=== PATIENT | male | born 1945 | race Caucasian/White ===

== ENCOUNTER 2019-10-27 08:21 | Observation (INO) ==
--- NOTE | 2019-10-09 14:15 | PAT Medication Instructions ---
Medication Instructions Date of Service October 09, 2019 Home Medications aspirin 81 mg tablet,delayed release 81 mg PO QAM atorvastatin 40 mg tablet 40 mg PO QAM carvedilol 3.125 mg tablet 3.125 mg PO QAM clopidogrel 75 mg tablet 75 mg PO QAM lisinopril 2.5 mg tablet 2.5 mg PO QAM ranolazine [Ranexa] 500 mg PO BID ASK your prescriber and surgeon clopidogrel 75 mg tablet 75 mg PO QAM DO NOT take the morning of surgery lisinopril 2.5 mg tablet 2.5 mg PO QAM Take morning of surgery With a small sip of water, OTHERWISE NOTHING TO EAT OR DRINK AFTER MIDNIGHT: aspirin 81 mg tablet,delayed release 81 mg PO QAM atorvastatin 40 mg tablet 40 mg PO QAM carvedilol 3.125 mg tablet 3.125 mg PO QAM ranolazine [Ranexa] 500 mg PO BID Take evening before surgery ranolazine [Ranexa] 500 mg PO BID Other Notes If you have any questions please call us at [phone] or [phone] or [phone] or [phone]
--- NOTE | 2019-10-09 14:26 | Anesthesiology Consultation ---
Date of Service October 09, 2019 Assessment & Plan (1) Encounter for pre-operative examination: S/P Cardiac cath 10/12/19 that showed patent stents, 20% RCA, otherwise mild luminal irregularities. CARDIO CLEARANCE 10/12/19: "Patient may proceed with planned knee surgery without additional cardiac testing. We will increase Ranexa dosage to 1000 mg twice daily." Chart Review Chart Review: Acceptable Risk for Surgery and Patient seen in Pre Admission Testing Teaching & Discussion Instructed NPO after midnight before surgery, except medications with 15 cc of water. Medication instructions provided according to the PAT guidelines. History Surgery Operation Date: 10/27/19 10:40 Proposed Procedures p Left Total Knee Arthroplasty - Kwesi Aragon MD Height/Weight Height: 6 ft 2 in Weight: 103.9 kg Allergies Allergy/AdvReac Type Severity Reaction Status Date / Time No Known Allergies Allergy Verified 10/09/19 13:49 Medications Home Medications Medication Instructions Recorded Confirmed Last Taken aspirin 81 mg tablet,delayed 81 mg PO QAM 10/09/19 10/09/19 Unknown release atorvastatin 40 mg tablet 40 mg PO QAM 10/09/19 10/09/19 Unknown carvedilol 3.125 mg tablet 3.125 mg PO QAM tab 10/09/19 10/09/19 Unknown clopidogrel 75 mg tablet 75 mg PO QAM 10/09/19 10/09/19 Unknown lisinopril 2.5 mg tablet 2.5 mg PO QAM 10/09/19 10/09/19 Unknown ranolazine [Ranexa] 500 mg PO BID 10/09/19 10/09/19 Unknown Past Medical History Medical History (Updated 10/15/19 @ 12:35 by José Miguel Kimball) CAD (coronary artery disease) [place] 2011. SUKI x 2. Cath 2015 with SUKI x 3 Hyperlipidemia Hypertension Myocardial Infarction 2011 > stents Osteoarthritis Exercise / Class Metabolic Activity II 4-5 Yardwork/Stairs/Walk up hill (Does 2 FOS daily at home, admits to some mild SOB and chest discomfort with FOS) Past Family History Family History Other Coronary heart disease Past Surgical History Surgical History H/O heart artery stent 10/2011 > 2 stents [facility] 2015 > 3 stents [facility] History of cardiac cath see stent info> getting cath on thursday 10/12/@ mery Gardner > reason due to upcoming procedure History of colonoscopy History of prior ablation treatment AUG 2018 FOR VEINS LEFT LEG History of tonsillectomy History of tooth extraction Hx of hernia repair Past Anesthesia History No Hx of Anesthesia Complications and No Family Hx of Anesthesia Complications History of PONV No Hx of PONV and Hx of Motion Sickness Social History Smoking Status: Former smoker Do You Dip or Chew Tobacco: No Smoking End Date: Hx Alcohol Use: Yes Alcohol type: wine alcohol intake frequency: a few times a week Hx Substance Use: No substance use type: does not use Review of Systems Pt denies any recent chest pain, shortness of breath, palpitations, cough, fever or URI. Physical Exam Vital Signs BP: 110/69 P: 65bpm SPO2: 94% RA T: 97.8 F R: 16 ENMT Mouth: + dentition abnormality (missing 1 lower molar, few upper) and + dentures (partial upper ); no chipped teeth and no loose teeth Thyromental Distance: > or= 3.5 Finger Breadths (3.5) Mallampati Class: I Neck normal visual inspection and + limited neck extension (mildly) Respiratory normal respiratory effort Auscultation: lungs clear to auscultation bilaterally Cardiovascular Rate/Rhythm: regular rate and regular rhythm Heart Sounds: no murmur Vessels: no carotid bruit Extremities: no edema Testing Laboratory Results 10/09/19 14:32 10/09/19 14:32 PT 10.4 Seconds (9.0-12.0) 10/09/19 14:32 INR 1.0 (0.9-1.1) 10/09/19 14:32 APTT 24.5 Seconds (21.0-31.0) 10/09/19 14:32 Blood Type A Positive 10/09/19 14:32 Antibody Screen NEGATIVE 10/09/19 14:32 Electrocardiogram Date: 10/08/19 Findings: + SB @ (55) Chest X-Ray Date: 10/09/19 FINDINGS: Cardiac silhouette is upper limits of normal in size. Coronary arterial stent graft noted. There is no pneumothorax, pleural effusion, focal airspace consolidation or overt pulmonary edema. Degenerative changes of the shoulders and spine. 11 mm ovoid nodular density 6 over the abdominal right upper quadrant, possibly a calcification. IMPRESSION: No acute process. Stress Test Date: 09/30/19 Type: nuclear Resting EF: 66% Myocardial perfusion imaging is normal with no ischemia or infarction. Wall motion is normal. Cardiac Catheterization Date: 10/12/19 Patent LAD, diagonal, circumflex and RCA stents. 20% proximal RCA. Otherwise mild luminal irregularities.
--- NOTE | 2019-10-09 14:52 | XRay Report ---
XR chest Pre-admission PA/Lat HISTORY: 74 years-old Male pat preoperative exam. No acute chest complaints COMPARISON: None TECHNIQUE: PA and lateral views of the chest FINDINGS: Cardiac silhouette is upper limits of normal in size. Coronary arterial stent graft noted. There is n o pneumothorax, pleural effusion, focal airspace consolidation or overt pulmonary edema. Degenerative changes of the shoulders and spine. 11 mm ovoid nodular density 6 over the abdominal right upper jovanna drant, possibly a calcification. IMPRESSION: No acute process. ACT 112: Negative or not required by law. The above report was generated using voice recognition software. It may contain grammatical, syntax o r spelling errors. Electronically signed by: Eric Strickland M.D. 10/09/2019 2:51 PM
[2019-10-09 15:13] LABS: Basophils # (auto) 0.07 K/uL (0-0.2); Eosinophils # (auto) 0.28 K/uL (0-0.5); Eosinophils % (auto) 4.1 %; Hematocrit (blood only) 42.4 % (42-52); Hemoglobin 14.4 g/dL (14.0-18.0); Immature Granulocytes # (auto) 0.01 K/uL (0.00-0.02); Immature Granulocytes % (auto) 0.1 %; Lymphocytes % (auto) 26.1 %; Mean Corpuscular Hemoglobin 30.8 pg (25-34); Mean Corpuscular Volume 90.6 fL (80-100); Mean Platelet Volume 9.5 fL (7.4-10.4); Monocytes # (auto) 0.68 K/uL (0.11-0.59); Monocytes % (auto) 9.9 %; Neutrophils # (auto) 4.05 K/uL (1.4-6.5); Neutrophils % (auto) 58.8 %; Platelet Count 275 K/uL (130-400); RDW Coefficient of Variation 13.1 % (11.5-14.5); RDW Standard Deviation 43.4 fL (36.4-46.3); Red Blood Count 4.68 M/uL (4.7-6.1); White Blood Count 6.89 K/uL (4.8-10.8)
[2019-10-09 15:24] LABS: Partial Thromboplastin Ratio 0.9; Partial Thromboplastin Time 24.5 Seconds (21.0-31.0); Prothrombin Time 10.4 Seconds (9.0-12.0)
[2019-10-09 15:26] LABS: Calcium 9.5 mg/dl (8.5-10.1); Creatinine Clr Calc Pharmacy 77.6 ml/min; Est GFR (African American) 77.6; Potassium 4.6 mmol/L (3.5-5.1)
[~2019-10-27 08:21] MED LIST: ACETAMINOPHEN 500 MG TAB PO SCH; BUPIVACAINE 0.5 % 5 MG/1 ML PF 10ML VIAL ONE; BUPIVACAINE LIPOSOME/PF 266 MG, BUPIVACAINE/EPINEPHRINE 50 ML, SODIUM CHLORIDE 0.9% 30 ... INFIL SCH; BUPIVACAINE/EPINEPHRINE 0.25% 1:200,000 30 ML VIAL ONE; CEFAZOLIN 2000MG 2,000 MG/15 ML SYR IV SCH; DEXAMETHASONE SOD INJ 4 MG/ML VIAL ONE; FAMOTIDINE 20 MG TAB PO SCH; GABAPENTIN 300 MG CAP PO SCH; LR 500ML BOLUS, THEN 15ML/HR IV SCH; LR 60ML/HR IV SCH; METOCLOPRAMIDE HCL 10 MG TABLET PO SCH; TRANEXAMIC ACID 1,000 MG **IV Intra-op IV SCH
--- NOTE | 2019-10-27 08:56 | History & Physical Bridge Note ---
Date of Service October 27, 2019 History & Physical Bridge Note I have examined the patient, reviewed the History & Physical and in the interval since the performance of the History & Physical I have noted the following changes of clinical significance: no changes noted
[2019-10-27] MEDS ORDERED: fentaNYL citrate 100 MCG/2 ML VIAL ONE (09:34)
[2019-10-27] MEDS ORDERED: MIDAZOLAM HCL 1 MG/ML 2ML VIAL ONE (09:34)
[2019-10-27] MEDS ORDERED: ATROPINE SULFATE 0.1 MG/ML 10ML SYR IV PRN (10:55)
[2019-10-27] MEDS ORDERED: ONDANSETRON INJ 2 MG/ML 2 ML VIAL IV PRN ×2 (10:55→14:49)
[2019-10-27] MEDS ORDERED: fentaNYL citrate 100 MCG/2 ML VIAL IV PRN (10:55)
[2019-10-27] MEDS ORDERED: ePHEDrine sulfate 50 MG/ML AMP IV PRN (10:55)
[2019-10-27] MEDS ORDERED: BUPIVACAINE/EPINEPHRINE 0.25% 1:200,000 30 ML VIAL ONE (11:06)
[2019-10-27] MEDS ORDERED: SODIUM CHLORIDE 0.9% PF 50 ML VIAL ONE (11:06)
[2019-10-27] MEDS ORDERED: BUPIVACAINE LIPOSOME 1.3% 266 MG/20 ML VIAL ONE (11:07)
[2019-10-27] MEDS ORDERED: BACITRACIN INJ 50,000 UNIT VIAL ONE (11:07)
[2019-10-27] MEDS ORDERED: PROPOFOL IV EMULSION 10 MG/ML 20 ML VIAL IV ONE (11:35)
[2019-10-27] MEDS ORDERED: ePHEDrine sulfate 50 MG/ML SYR ONE (12:18)
--- NOTE | 2019-10-27 13:15 | Post Operative Brief Note ---
PG Immediate Post Op with CF Date of Surgery October 27, 2019 Pre & Post Diagnosis Operation Date: 10/27/19 10:40 Pre-Op Diagnosis: Left Knee Degenerative Joint Disease Post-Op Diagnosis: Left Knee Degenerative Joint Disease I identified the patient and participated in the time-out.: Yes Procedure Operation Date: 10/27/19 10:40 Actual Procedures p Left Total Knee Arthroplasty(Left) - Kwesi Aragon MD Surgeon Kwesi Aragon MD Risk Control Product Liability Director Amelia, PAC Estimated Blood Loss 50 Findings Consistent with Post-Op Diagnosis Fluids 1200 cc Specimens Specimen Description: A. Left Knee Bone and Tissue Drains Sauceda Catheter Anesthesia Type Spinal MAC Complications none Disposition Accompanied Patient To Recovery: No Disposition: Recovery Room
--- NOTE | 2019-10-27 13:53 | XRay Report ---
XR knee LT 1 or 2V routine CLINICAL HISTORY: Surgical Post Op COMPARISON: Knee radiographs October 09, 2019. FINDINGS: Alignment of the total left knee arthroplasty is anatomic. There is no periprosthetic frac ture or unexpected radiopaque foreign body. There are skin lety. IMPRESSION: Expected findings following total left knee arthroplasty. ACT 112: Negative or not required by law. Electronically signed by: Vinod Wells M.D. 10/27/2019 1:52 PM
--- NOTE | 2019-10-27 14:21 | Anesthesiology Progress Note ---
Date of Service October 27, 2019 Anesthesia Post Procedure Vital Signs Vital Signs: Temp Pulse Pulse Resp BP BP Pulse Ox 10/27/19 14:10 61 17 116/69 94 10/27/19 14:00 36.4 C L 57 L 14 119/72 96 10/27/19 13:50 58 L 15 120/74 98 10/27/19 13:40 60 13 111/64 95 10/27/19 13:30 63 12 101/58 L 97 10/27/19 13:21 36.4 C L 61 20 104/63 99 10/27/19 08:53 36.5 C 62 18 145/95 H 97 Transfer of Care Handoff Completed per policy Notes Mental Status: alert / awake / arousable Patient Amnestic to Procedure: Yes Nausea / Vomiting: adequately controlled Pain: adequately controlled Airway Patency, RR, SpO2: stable & adequate BP & HR: stable & adequate Hydration State: stable & adequate Neuraxial Anesthesia: was administered and sensory block is resolving Anesthetic Complications: no major complications apparent and Pt Satisfied with anesthetic care
[2019-10-27] MEDS ORDERED: METOCLOPRAMIDE HCL INJ 5 MG/ML 2 ML VIAL IV PRN (14:49)
[2019-10-27] MEDS ORDERED: NALOXONE HCL 0.4 MG/1 ML VIAL/CARP IV PRN (14:49)
[2019-10-27] MEDS ORDERED: bisacodyL 10 MG SUPP PR PRN (14:49)
[2019-10-27] MEDS ORDERED: MAGNESIUM HYDROXIDE SUSP 30 ML UDC PO PRN (14:49)
[2019-10-27] MEDS ORDERED: HYDROmorphone INJ 0.5 MG/0.5 ML SYR IV PRN (14:49)
[2019-10-27] MEDS ORDERED: ALUMINUM/MAGNESIUM SUSP 30 ML UDC PO PRN (14:49)
[2019-10-27] MEDS ORDERED: TAMSULOSIN HCL 0.4 MG CAP PO PRN (14:49)
[2019-10-27] MEDS: SODIUM CHLORIDE 0.9% 1000ML 1,000 ML IV SCH (16:16)
[2019-10-27] MEDS: ACETAMINOPHEN 500 MG TAB PO SCH ×2 (16:16→21:28)
--- NOTE | 2019-10-27 16:59 | Operative Report ---
Post Operative Report Pre & Post Diagnosis Operation Date: 10/27/19 10:40 Pre-Op Diagnosis: Left Knee Degenerative Joint Disease Post-Op Diagnosis: Left Knee Degenerative Joint Disease I identified the patient and participated in the time-out.: Yes Procedure Operation Date: 10/27/19 10:40 Actual Procedures p Left Total Knee Arthroplasty(Left) - Kwesi Aragon MD Surgeon Kwesi Aragon MD In Store Banker Amelia, PAC Estimated Blood Loss 50 Findings Consistent with Post-Op Diagnosis Operative findings revealed advanced left knee DJD with extensive grade 4 [id number] disease of the medial femoral condyle medial tibial plateau with eburnation of both surfaces. He had some mild patellofemoral disease and pretty well spared lateral compartment. He had osteophytes medially. Moderate-sized joint effusion. He had fixed varus deformity to his knee. Fluids 1200 cc. Specimens Left knee sent for pathology. Drains None. Anesthesia Type Spinal MAC Complications none Disposition Accompanied Patient To Recovery: No Disposition: Recovery Room Indications Patient is a 74-year-old fairly active gentleman is had a fairly long history of bilateral knee pain discomfort left side bit worse than the right. He has been through extensive conservative treatment without adequate relief. Left knee was bothering more than the right. X-rays show advanced bilateral knee DJD. He elected proceed with left total knee arthroplasty. Description of Procedure Operative implants consist of: 1. Biomet Vanguard size 75 left posterior by femoral component. 2. Biomet size 79 tibial tray. 3. 10 mm Po stabilized polyethylene insert. 4. 34 x 8 and half all poly-patella. Patient was taken to the operating room identified and placed on the operating table supine position protectors were properly padded. IV antibiotics arrived by anesthesia team. A spinal anesthetic and abductor canal block had provided in the holding area. Sauceda catheter was placed in sterile fashion. A left eye turn was then placed in the left lower extremity was then prepped and draped in usual sterile fashion. The left leg was elevated and exsanguinated with use of an Esmarch and turns placed at 300 mmHg. An anterior approach to the left knee was then performed to longitudinal incision centered over the patella. Sharp dissection was carried through subcutaneous tissue down below the extensor mechanism. A medial parapatellar arthrotomy incision was made. Some subperiosteal dissection was carried out medially. The fat pad was resected from each patella tendon. Lateral patellofemoral ligament was released. Patella was subluxated laterally and the knee was flexed. The osteophytes were taken off the distal femur. The ACL and PCL were then released in the distal femur and the tibia subluxated anteriorly. The external tibial alignment jig was then placed in the interface the tibia and adjusted 14 mm medially. Proximal tibial cut was made to remove about a millimeter bone from most efficient aspect the medial tibial plateau. Some osteophytes were taken off medial and posterior medially. The tibia sized to a size 79. Attention drawn the femur. The distal femur was entered with a sharp drop with intramedullary canal was suction. A left 6 degree valgus cutting guide was placed. This femoral cutting block was pinned in place but distal femoral cut was made to take an additional 3 mm of bone off the distal femur. The femur was then sized to a size 75. We did downsize this slightly. The AP cutting block was pinned parallel to the epicondylar axis which was 4 degrees of external rotation. The anterior cut, anterior chamfer, posterior cut, posterior chamfer cuts were made. Box cutting guide was placed in just slight lateral and the box cut was made. The knee was flexed. The remnants of the medial lateral menisci were excised. The osteophytes were taken off the posterior aspect of the femur. Trial femoral component was placed but the tibial tray was pinned in maximum external rotation and the drill and stem punch were used to create defect in the proximal tip for the tibial tray. The knee was then trialed and the 10 mm insert fit most appropriately. Attention drawn the patella. Patella was cleaned of all soft tissues. Patella thickness measured 25 mm in thickness was cut down to 15. Was sized to a size 34 patella. Lug holes were drilled for 34 patella. Lateral osteophytes removed. Patella button was placed. Knee was taken through range of motion patella tracked nicely with no thumbs test. Attention drawn to placing the permanent components. All trial components were removed. Bone plug was placed in the disc femur limit blood loss put a double batch Palacos G cement was mixed. Marketbright size 75 left posterior by femoral component, size 79 tibial tray, a 10 mm posterior box polyethylene insert, and a 34 x 8 and half all poly-patella then cement in place. Knee was brought out into full extension total cement hardened. Final cement check was then performed. The pericapsular tissues were injected with total 100 cc of combination of 20 cc of Exparel, 30 cc normal saline, 50 cc of quarter percent Marcaine with epinephrine. Patient did receive 1 g of tranexamic acid per the tourniquet was then let down for final tourniquet time of 59 minutes. Hemostasis assured use electrocautery. The extensor neck was then closed with combination 1 PDS suture #1 Vicryl suture in [id number] fashion for extensor mechanism checked found to be intact the subcutaneous tissue then closed with 2 Dexon suture in a buried interrupted fashion skin was closed skin lety. Legs then cleaned dried and sterile dressing composed Xeroform, 4 x 4's, sterile cast padding, Ortega bandage were applied. Patient then transferred to the recovery room in stable condition. Patient tolerated p rocedure well no complications. Jl Loera, my physician insurance claims assistant, was essential to perform this procedure. His assistance was critical in positioning the patient, prepping the leg, exposing the patient, performing the technical portions of the procedure, closing the wound, and placing the sterile bandage at the end of the case. I attest to the content of the Intraoperative Record and any orders documented therein. Any exceptions are noted below.
[2019-10-27] MEDS: FERROUS GLUCONATE 324 MG TAB PO SCH (18:34)
[2019-10-27] MEDS: ASCORBIC ACID 500 MG TAB PO SCH (18:35)
[2019-10-27] MEDS: CEFAZOLIN 2000MG 2,000 MG/15 ML SYR IV SCH (18:40)
[2019-10-27] MEDS: DOCUSATE SODIUM 100 MG CAP PO SCH (20:31)
[2019-10-27] MEDS: RANOLAZINE 500 MG ER TAB PO SCH (20:31)
[2019-10-27] MEDS: SENNA 8.6 MG TAB PO SCH (20:32)
[2019-10-28] MEDS: SODIUM CHLORIDE 0.9% 1000ML 1,000 ML IV SCH (00:10)
[2019-10-28] MEDS: TRAMADOL HCL 50 MG TABLET PO PRN ×4 (00:13→19:50)
[2019-10-28] MEDS: CEFAZOLIN 2000MG 2,000 MG/15 ML SYR IV SCH (03:45)
[2019-10-28] MEDS: ACETAMINOPHEN 500 MG TAB PO SCH ×3 (05:54→21:41)
[2019-10-28 06:44] LABS: Hematocrit (blood only) 35.5 % (42-52); Hemoglobin 11.6 g/dL (14.0-18.0); Mean Corpuscular Hemoglobin 29.9 pg (25-34); Mean Corpuscular Hgb Conc 32.7 g/dL (32-36); Mean Corpuscular Volume 91.5 fL (80-100); Mean Platelet Volume 9.6 fL (7.4-10.4); Platelet Count 245 K/uL (130-400); RDW Coefficient of Variation 13.3 % (11.5-14.5); RDW Standard Deviation 44.2 fL (36.4-46.3); Red Blood Count 3.88 M/uL (4.7-6.1); White Blood Count 12.27 K/uL (4.8-10.8)
[2019-10-28 07:15] LABS: BUN Creatinine Ratio 19.2 (10-20); Calcium 8.1 mg/dl (8.5-10.1); Creatinine Clr Calc Pharmacy 89.5 ml/min; Est GFR (African American) 92.9; Est GFR (Non-African American) 80.1; Potassium 4.1 mmol/L (3.5-5.1)
[2019-10-28] MEDS: RANOLAZINE 500 MG ER TAB PO SCH ×2 (09:08→21:41)
[2019-10-28] MEDS: CLOPIDOGREL BISULFATE 75 MG TAB PO SCH (09:08)
[2019-10-28] MEDS: DOCUSATE SODIUM 100 MG CAP PO SCH ×2 (09:08→21:41)
[2019-10-28] MEDS: ASCORBIC ACID 500 MG TAB PO SCH ×2 (09:08→18:09)
[2019-10-28] MEDS: ASPIRIN 81 MG ECTAB PO SCH (09:08)
[2019-10-28] MEDS: MULTIVITAMIN TAB PO SCH (09:08)
[2019-10-28] MEDS: carvediloL 3.125 MG TAB PO SCH (09:09)
[2019-10-28] MEDS: ATORVASTATIN 40 MG TAB PO SCH (09:09)
[2019-10-28] MEDS: FERROUS GLUCONATE 324 MG TAB PO SCH ×2 (09:10→18:09)
--- NOTE | 2019-10-28 17:25 | Progress Notes ---
DATE: 10/28/2019 SUBJECTIVE: 74-year-old gentleman postop day 1 from a left knee replacement. He is doing pretty well. Pain rates it a 4 or 5 at worst. No chest pain or shortness of breath. Therapy went reasonably well today. OBJECTIVE: VITAL SIGNS: Temperature 36.7. Vital signs stable. GENERAL: Shows a pleasant, middle-aged male. He is sitting up in bed and talking to his family. He looks pretty comfortable. LUNGS: Clear to auscultation. HEART: Regular rate and rhythm. ABDOMEN: Soft, nontender, nondistended. EXTREMITIES: Grossly neurovascularly intact except as follows: Examination of the left leg reveals the dressing to be clean, dry and intact. Leg is well aligned. He can dorsiflex and plantarflex his foot appropriately. He is neurologically intact. LABORATORY DATA: Hemoglobin 11.6. Hematocrit 35.5. Electrolytes are stable. ASSESSMENT: 74-year-old gentleman postop day 1 from a left knee replacement, doing pretty well. Pain is controlled. He is neurologically intact. PLAN: 1. DVT prophylaxis including thigh-high TEDS, SCDs. He is on a baby aspirin once a day along with Plavix. 2. PT/OT. Weight bear as tolerated. Left total knee protocol. 3. Pain control, doing pretty well with current pain regimen. 4. Disposition: Plan to discharge to home with some home health once adequately recovered and medically stable.
[2019-10-28] MEDS: SENNA 8.6 MG TAB PO SCH (21:41)
[2019-10-28 23:04] VITALS: O2SAT 95
[2019-10-29] MEDS: ACETAMINOPHEN 500 MG TAB PO SCH (06:15)
[2019-10-29 06:35] VITALS: BP 122/75; TEMP 98.4
[2019-10-29] MEDS: ASCORBIC ACID 500 MG TAB PO SCH (08:08)
[2019-10-29] MEDS: RANOLAZINE 500 MG ER TAB PO SCH (08:08)
[2019-10-29] MEDS: ASPIRIN 81 MG ECTAB PO SCH (08:09)
[2019-10-29] MEDS: MULTIVITAMIN TAB PO SCH (08:09)
[2019-10-29] MEDS: ATORVASTATIN 40 MG TAB PO SCH (08:09)
[2019-10-29] MEDS: FERROUS GLUCONATE 324 MG TAB PO SCH (08:09)
[2019-10-29] MEDS: CLOPIDOGREL BISULFATE 75 MG TAB PO SCH (08:10)
[2019-10-29] MEDS: DOCUSATE SODIUM 100 MG CAP PO SCH (08:10)
[2019-10-29] MEDS: carvediloL 3.125 MG TAB PO SCH (08:11)
[2019-10-29] MEDS: TRAMADOL HCL 50 MG TABLET PO PRN (08:13)
--- NOTE | 2019-10-29 09:10 | Progress Notes ---
DATE: 10/29/2019 SUBJECTIVE: A 74-year-old gentleman postop day 2 from left knee replacement. He is doing pretty well. Pain is controlled with pain medicines. No chest pain or shortness of breath. Not feeling dizzy or lightheaded. OBJECTIVE: VITAL SIGNS: Temperature 36.9. Vital signs stable. GENERAL: A pleasant elderly male. He is sitting up in bed, looks quite comfortable. He is awake, alert and oriented. EXTREMITIES: Examination of the left knee reveals the dressing to be in place. Just a little bit of bloody drainage inferiorly. Calf is soft and supple. He is neurologically intact. ASSESSMENT: A 74-year-old gentleman with a significant heart history postoperative day 2 from a left knee replacement, doing pretty well. His pain is controlled. He is neurologically intact. PLAN: 1. DVT prophylaxis including thigh-high TEDs, SCDs, and back on his Plavix as well as his baby aspirin once a day. 2. PT/OT. He can weightbear as tolerated. Left total knee protocol. 3. Pain control, doing pretty well with current pain regimen. 4. Disposition: Plan to discharge to home with some home health after therapy today.
[2019-10-29 10:21] VITALS: PULSE 62
--- NOTE | 2019-11-02 19:10 | Discharge Summary (DS) ---
ADMITTING PHYSICIAN AND SURGEON: Dr. Aragon. ADMITTING DIAGNOSIS: Left knee degenerative joint disease. SURGERY PERFORMED: Left total knee arthroplasty. SECONDARY DIAGNOSES: Coronary artery disease, arthritis, hypertension, elevated cholesterol. CONSULTS: None obtained. HISTORY AND PHYSICAL EXAMINATION: Well documented in the patient's chart. HOSPITAL COURSE: The patient was admitted on 10/27/2019 and underwent total knee arthroplasty, tolerated the procedure well. There were no complications. He was transferred to the PACU postoperatively and later to the orthopedic floor for further care. He was given Ancef for antibiotic prophylaxis, TESS stockings, SCDs, aspirin and Plavix for DVT prophylaxis. Hemoglobin, hematocrit and vital signs were monitored during his hospital stay and remained stable, did not require any blood transfusions. There were no complications. By postoperative day 2, he was tolerating a regular diet, pain was controlled with oral pain medicine. He was participating in physical therapy. Postop day 2, he was discharged home, set up with home health services, given printed discharge instructions as well as new prescriptions for extra strength Tylenol and tramadol. Continue his home medicines. Continue physical therapy, weightbearing as tolerated, TESS stockings. Follow up approximately 2 weeks postop or sooner if there are any problems or concerns.
== END 2019-10-29 11:39 | disposition home health service (06) ==
LOC: 3E 08:21 → ASU 08:21